=== PATIENT | female | born 1940 | race Caucasian/White ===

== ENCOUNTER 2021-10-24 09:30 | Outpatient (CLI) | payer MEDICARE, BC ==
[~2021-10-24 09:30] MED LIST: Iopamidol 300 61% 100 ML VIAL FS ONE
== END 2021-10-24 09:31 | disposition home or self-care (01) ==
LOC: CSHCT 09:30
PROVIDERS: ATTEND Anesthesiology Pain Medicine
DX: M48.062 Spinal stenosis, lumbar region with neurogenic claudication (principal); M43.16 Spondylolisthesis, lumbar region; Z98.890 Other specified postprocedural states; M47.816 Spondylosis without myelopathy or radiculopathy, lumbar region
CPT/HCPCS: 72120; 72132; 82565

== ENCOUNTER 2022-08-23 15:11 | Outpatient (CLI) | payer MEDICARE, BC | END 2022-08-23 15:12 | disposition home or self-care (01) | LOC: CSHULT 15:11 | PROVIDERS: ATTEND Internal Medicine | DX: E04.1 Nontoxic single thyroid nodule (principal) | CPT/HCPCS: 76536 ==

== ENCOUNTER 2023-03-20 11:55 | Outpatient (CLI) | payer MEDICARE, BC | END 2023-03-20 11:56 | disposition home or self-care (01) | LOC: CSHMAMMO 11:55 | PROVIDERS: ATTEND Internal Medicine | DX: Z12.31 Encounter for screening mammogram for malignant neoplasm of breast (principal); Z80.3 Family history of malignant neoplasm of breast; Z91.89 Other specified personal risk factors, not elsewhere classified | CPT/HCPCS: 77063; 77067 ==

== ENCOUNTER 2024-12-29 05:15 | Emergency (ER) | payer MEDICARE, BC ==
[2024-12-29 05:38] LABS: #Basophils 0.11 10x3/uL (0.0-0.2); #Eosinophils 0.68 10x3/uL (0.0-0.5); #Monocytes 0.75 10x3/uL (0.0-1.1); #Neutrophils 3.65 10x3/uL (1.5-8.4); %Basophils 1.3 % (0.0-2.0); %Eosinophils 8.0 % (0.0-6.0); %Lymphocytes 38.5 % (18.0-47.0); %Monocytes 8.9 % (0.0-10.0); %Neutrophils 43.2 % (40.0-75.0); Hematocrit 41.7 % (34.9-44.5); Hemoglobin 13.1 g/dL (12.0-15.5); Mean Corpuscular Hemoglobin 30.5 pg (27.0-33.0); Mean Corpuscular Volume 97.2 fL (81.6-98.3); Platelet Count 240 10x3/uL (150-450); Red Blood Cell (RBC) Count 4.29 10x6/uL (3.90-5.03); White Blood Cell (WBC) Count 8.45 10x3/uL (3.5-10.5)
[2024-12-29 05:49] LABS: ALT (SGPT) 45 U/L (Less than 34); AST (SGOT) 36 U/L (11-34); Albumin 4.0 g/dL (3.1-4.5); Alkaline Phosphatase 88 U/L (40-110); Anion Gap 14 mmol/L (10-20); BUN (Urea Nitrogen) 16 mg/dL (9.8-20.1); Bilirubin, Total 0.4 mg/dL (0.3-1.2); Calc. Creatinine Clearance 0 mL/min (70-130); Calcium 8.6 mg/dL (7.8-10.44); Carbon Dioxide 23 mmol/L (23-31); Chloride 106 mmol/L (98-107); Globulin 2.8 g/dL (2.4-3.5); Glucose 115 mg/dL (83-110); Potassium 4.1 mmol/L (3.5-5.1); Sodium 139 mmol/L (136-145)
[2024-12-29 05:55] LABS: Troponin I 0.016 ng/mL (< 0.028)
== END 2024-12-29 07:18 | disposition home or self-care (01) ==
LOC: CSHERS 05:15
DX: J38.3 Other diseases of vocal cords (principal); R06.00 Dyspnea, unspecified; K21.9 Gastro-esophageal reflux disease without esophagitis; I10 Essential (primary) hypertension; Z79.899 Other long term (current) drug therapy; Z95.0 Presence of cardiac pacemaker; Z79.82 Long term (current) use of aspirin
CPT/HCPCS: 71045; 80053; 83880; 84484; 85025; 93005

== ENCOUNTER 2025-03-01 04:47 | Emergency (ER) | payer MEDICARE, BC ==
[2025-03-01] MEDS ORDERED: Acetaminophen 500 MG TAB ONE (05:00)
[2025-03-01 05:30] LABS: #Basophils 0.13 10x3/uL (0.0-0.2); #Eosinophils 0.49 10x3/uL (0.0-0.5); #Monocytes 0.53 10x3/uL (0.0-1.1); #Neutrophils 3.33 10x3/uL (1.5-8.4); %Basophils 2.0 % (0.0-2.0); %Eosinophils 7.5 % (0.0-6.0); %Lymphocytes 31.0 % (18.0-47.0); %Monocytes 8.1 % (0.0-10.0); %Neutrophils 51.1 % (40.0-75.0); ALT (SGPT) 51 U/L (Less than 34); AST (SGOT) 49 U/L (11-34); Albumin 4.2 g/dL (3.1-4.5); Alkaline Phosphatase 86 U/L (40-110); Anion Gap 13 mmol/L (10-20); BUN (Urea Nitrogen) 14 mg/dL (9.8-20.1); Bilirubin, Total 0.7 mg/dL (0.3-1.2); Calc. Creatinine Clearance 0 mL/min (70-130); Calcium 9.2 mg/dL (7.8-10.44); Carbon Dioxide 25 mmol/L (23-31); Chloride 100 mmol/L (98-107); Globulin 2.5 g/dL (2.4-3.5); Glucose 87 mg/dL (83-110); Hematocrit 38.6 % (34.9-44.5); Hemoglobin 13.1 g/dL (12.0-15.5); Mean Corpuscular Hemoglobin 31.7 pg (27.0-33.0); Mean Corpuscular Volume 93.5 fL (81.6-98.3); Platelet Count 254 10x3/uL (150-450); Potassium 4.8 mmol/L (3.5-5.1); Red Blood Cell (RBC) Count 4.13 10x6/uL (3.90-5.03); Sodium 133 mmol/L (136-145); White Blood Cell (WBC) Count 6.52 10x3/uL (3.5-10.5)
[2025-03-01 05:36] LABS: Troponin I 0.010 ng/mL (< 0.028)
[2025-03-01] MEDS ORDERED: AFRIN NASAL MIST 15 ML BOT ONE (06:53)
== END 2025-03-01 07:15 | disposition home or self-care (01) ==
LOC: CSHERS 04:47
DX: J01.90 Acute sinusitis, unspecified (principal); R51.9 Headache, unspecified; R29.700 NIHSS score 0; E78.00 Pure hypercholesterolemia, unspecified; I10 Essential (primary) hypertension; K21.9 Gastro-esophageal reflux disease without esophagitis
CPT/HCPCS: 70450; 71045; 80053; 84484; 85025; 93005; 96374